=== PATIENT | male | born 1955 | race African-American/Black ===

== ENCOUNTER 2024-06-03 14:32 | Emergency (ER) | payer MEDICARE ==
[2024-06-03 15:37] LABS: BASOPHILS PERCENT AUTO 0.3 % (0.0-1.0); EOSINOPHILS ABSOLUTE AUTO 0.1 K/mm3 (0.0-0.4); EOSINOPHILS PERCENT AUTO 1.9 % (0.0-6.0); HEMATOCRIT 28.8 % (42.0-52.0); HEMOGLOBIN 9.3 gm/dl (14.0-18.0); IMMATURE GRAN ABSOLUTE AUTO 0.01 K/mm3 (0.00-0.05); IMMATURE GRAN PERCENT AUTO 0.3 % (0.0-0.4); LYMPHOCYTES ABSOLUTE AUTO 0.8 K/mm3 (1.0-4.8); LYMPHOCYTES PERCENT AUTO 25.2 % (24.0-44.0); MEAN CORPUSCULAR HGB CONC 32.3 g/dl (32.0-36.0); MEAN CORPUSCULAR VOLUME 92.9 fl (83.0-99.0); MEAN PLATELET VOLUME 11.7 fl (9.4-12.4); MONOCYTES ABSOLUTE AUTO 0.2 K/mm3 (0.0-0.8); MONOCYTES PERCENT AUTO 6.5 % (0.0-8.0); NEUTROPHILS ABSOLUTE AUTO 2.1 K/mm3 (1.8-7.7); NEUTROPHILS PERCENT AUTO 65.8 % (41.0-71.0); PLATELET COUNT,PLT 115 K/mm3 (150-400); WHITE BLOOD CELL COUNT,WBC 3.21 K/mm3 (3.9-11.3)
[2024-06-03 16:05] LABS: A/G RATIO 0.8 (1-2); ALBUMIN 3.4 g/dl (3.4-5.0); ANION GAP 12.9 (5-15); BILIRUBIN TOTAL 0.5 mg/dL (0.2-1.0); BUN/CREATININE RATIO 18.3 (14-18); CALCIUM 9.3 mg/dL (8.5-10.1); CREATININE 1.8 mg/dL (0.7-1.3); EST CRCL DRUG DOSING (CG) 34.17 mL/min; POTASSIUM,K 5.9 mEq/L (3.5-5.1); PROTEIN TOTAL,TP 7.9 g/dl (6.4-8.2)
== END 2024-06-03 16:45 | disposition home or self-care (01) ==
LOC: JD.ED 14:32
DX: E11.649 Type 2 diabetes mellitus with hypoglycemia without coma (principal); E11.22 Type 2 diabetes mellitus with diabetic chronic kidney disease; I12.9 Hypertensive chronic kidney disease with stage 1 through stage 4 chronic kidney disease, or unspecified chronic kidney disease; N18.9 Chronic kidney disease, unspecified
CPT/HCPCS: 36415; 80053; 82947; 85025; 93005; 93010; 99282; 99285

== ENCOUNTER 2024-06-30 23:10 | Emergency (ER) | payer MEDICARE ==
[2024-06-30] MEDS: diphenhydrAMINE 12.5 MG, Alum Hydrox/Mag Hydrox/Simeth 30 ML, Lidocaine 2% 15 ML PO ONE (23:42)
[2024-06-30 23:51] LABS: BASOPHILS PERCENT AUTO 0.3 % (0.0-1.0); EOSINOPHILS PERCENT AUTO 0.6 % (0.0-6.0); HEMATOCRIT 28.9 % (42.0-52.0); HEMOGLOBIN 9.5 gm/dl (14.0-18.0); IMMATURE GRAN ABSOLUTE AUTO 0.01 K/mm3 (0.00-0.05); IMMATURE GRAN PERCENT AUTO 0.3 % (0.0-0.4); LYMPHOCYTES ABSOLUTE AUTO 1.1 K/mm3 (1.0-4.8); LYMPHOCYTES PERCENT AUTO 33.1 % (24.0-44.0); MEAN CORPUSCULAR HEMOGLOBIN 30.7 pg (28.0-32.0); MEAN CORPUSCULAR HGB CONC 32.9 g/dl (32.0-36.0); MEAN CORPUSCULAR VOLUME 93.5 fl (83.0-99.0); MEAN PLATELET VOLUME 12.3 fl (9.4-12.4); MONOCYTES ABSOLUTE AUTO 0.2 K/mm3 (0.0-0.8); MONOCYTES PERCENT AUTO 4.5 % (0.0-8.0); NEUTROPHILS PERCENT AUTO 61.2 % (41.0-71.0); PLATELET COUNT,PLT 88 K/mm3 (150-400); RED BLOOD CELL COUNT 3.09 M/mm3 (4.52-5.90); WHITE BLOOD CELL COUNT,WBC 3.32 K/mm3 (3.9-11.3)
[2024-07-01 00:18] LABS: STREP A BY PCR NOT DETECTED (NOT DETECT)
[2024-07-01 00:21] LABS: A/G RATIO 0.8 (1-2); ALBUMIN 3.4 g/dl (3.4-5.0); ANION GAP 15.2 (5-15); BILIRUBIN TOTAL 0.8 mg/dL (0.2-1.0); BUN/CREATININE RATIO 15.7 (14-18); CALCIUM 8.9 mg/dL (8.5-10.1); CREATININE 1.4 mg/dL (0.7-1.3); EST CRCL DRUG DOSING (CG) 40.64 mL/min; POTASSIUM,K 5.2 mEq/L (3.5-5.1); PROTEIN TOTAL,TP 7.9 g/dl (6.4-8.2)
[2024-07-01 00:30] LABS: CORONAVIRUS COVID-19 NAA NEGATIVE (NEGATIVE); INFLUENZA A NAA NEGATIVE (NEGATIVE); RESPIRATORY SYNCYTIAL VIR NAA NEGATIVE (NEGATIVE)
[2024-07-01 00:45] LABS: SLIDE REVIEW ABNORMAL SMEAR
[2024-07-01 01:13] LABS: HEPATITIS C AB NON-REACTIVE (Non-React)
[2024-07-01 01:14] LABS: HIV RAPID SCREEN RLFX COMFIRM NON-REACTIVE (Non-React)
== END 2024-07-01 02:16 | disposition home or self-care (01) ==
LOC: JD.ED 23:10
DX: J02.9 Acute pharyngitis, unspecified (principal); D61.818 Other pancytopenia; Z88.8 Allergy status to other drugs, medicaments and biological substances; Z79.899 Other long term (current) drug therapy
CPT/HCPCS: 0241U; 36415; 80053; 85025; 86803; 87651; 99283; G0433; A9270-GY

== ENCOUNTER 2024-07-01 09:59 | Emergency (ER) | payer MEDICARE ==
[2024-07-01 11:28] LABS: BASOPHILS PERCENT AUTO 0.3 % (0.0-1.0); EOSINOPHILS PERCENT AUTO 1.2 % (0.0-6.0); HEMATOCRIT 28.8 % (42.0-52.0); HEMOGLOBIN 9.4 gm/dl (14.0-18.0); LYMPHOCYTES ABSOLUTE AUTO 0.9 K/mm3 (1.0-4.8); LYMPHOCYTES PERCENT AUTO 25.4 % (24.0-44.0); MEAN CORPUSCULAR HEMOGLOBIN 30.6 pg (28.0-32.0); MEAN CORPUSCULAR HGB CONC 32.6 g/dl (32.0-36.0); MEAN CORPUSCULAR VOLUME 93.8 fl (83.0-99.0); MEAN PLATELET VOLUME 12.2 fl (9.4-12.4); MONOCYTES ABSOLUTE AUTO 0.1 K/mm3 (0.0-0.8); MONOCYTES PERCENT AUTO 3.5 % (0.0-8.0); NEUTROPHILS ABSOLUTE AUTO 2.4 K/mm3 (1.8-7.7); NEUTROPHILS PERCENT AUTO 69.6 % (41.0-71.0); PLATELET COUNT,PLT 99 K/mm3 (150-400); RED BLOOD CELL COUNT 3.07 M/mm3 (4.52-5.90); WHITE BLOOD CELL COUNT,WBC 3.46 K/mm3 (3.9-11.3)
[2024-07-01 11:51] LABS: A/G RATIO 0.8 (1-2); ALBUMIN 3.3 g/dl (3.4-5.0); ANION GAP 12.8 (5-15); BILIRUBIN TOTAL 0.8 mg/dL (0.2-1.0); C-REACTIVE PROTEIN 0.79 mg/dL (<0.30); CREATININE 1.5 mg/dL (0.7-1.3); MAGNESIUM 1.5 mg/dL (1.8-2.4); POTASSIUM,K 5.8 mEq/L (3.5-5.1); PROTEIN TOTAL,TP 7.7 g/dl (6.4-8.2)
[2024-07-01 12:08] LABS: CORONAVIRUS COVID-19 NAA NEGATIVE (NEGATIVE); INFLUENZA A NAA NEGATIVE (NEGATIVE); RESPIRATORY SYNCYTIAL VIR NAA NEGATIVE (NEGATIVE)
[2024-07-01 12:16] LABS: SLIDE REVIEW ABNORMAL SMEAR
[2024-07-01] MEDS: Sodium Chloride 0.9% 1,000 ML IV ONE (12:50)
[2024-07-01] MEDS: Sodium Chloride 0.9% 10 ML Syringe FLUSH PRN (12:51)
[2024-07-01 14:54] LABS: BARBITURATE SCREEN,URINE NEGATIVE (CUTOFF=200); BENZODIAZEPINES SCREEN,URINE NEGATIVE (CUTOFF=150); BUPRENORPHINE SCREEN,URINE NEGATIVE (CUTOFF=10); METHADONE SCREEN, URINE NEGATIVE (CUT0FF=200); METHAMPHETAMINES SCREEN, URINE NEGATIVE (CUTOFF=500); OXYCODONE SCREEN,URINE NEGATIVE (CUT0FF=100); THC SCREEN,URINE 20 NG/ML NEGATIVE (CUTOFF=50)
[2024-07-01 15:03] LABS: AMPHETAMINES SCREEN, URINE NEGATIVE (CUTOFF=500)
== END 2024-07-01 16:30 | disposition home or self-care (01) ==
LOC: JD.ED 09:59
DX: J18.9 Pneumonia, unspecified organism (principal); I10 Essential (primary) hypertension; J45.909 Unspecified asthma, uncomplicated; E11.9 Type 2 diabetes mellitus without complications; Z88.8 Allergy status to other drugs, medicaments and biological substances; Z79.899 Other long term (current) drug therapy; Z86.16 Personal history of COVID-19
CPT/HCPCS: 0241U; 36415; 70450; 71045; 80053; 80306; 80307; 83735; 84484; 85025; 86140; 87651; 93005; 96360; 99284; J3490; J7030; 93010; 99283

== ENCOUNTER 2024-07-08 10:40 | Inpatient (IN) | payer MEDICARE ==
[2024-07-08 11:26] LABS: BASOPHILS PERCENT AUTO 0.4 % (0.0-1.0); EOSINOPHILS PERCENT AUTO 0.7 % (0.0-6.0); HEMATOCRIT 28.9 % (42.0-52.0); HEMOGLOBIN 9.7 gm/dl (14.0-18.0); IMMATURE GRAN ABSOLUTE AUTO 0.02 K/mm3 (0.00-0.05); IMMATURE GRAN PERCENT AUTO 0.7 % (0.0-0.4); LYMPHOCYTES ABSOLUTE AUTO 0.7 K/mm3 (1.0-4.8); LYMPHOCYTES PERCENT AUTO 24.3 % (24.0-44.0); MEAN CORPUSCULAR HEMOGLOBIN 30.6 pg (28.0-32.0); MEAN CORPUSCULAR HGB CONC 33.6 g/dl (32.0-36.0); MEAN CORPUSCULAR VOLUME 91.2 fl (83.0-99.0); MEAN PLATELET VOLUME 11.2 fl (9.4-12.4); MONOCYTES ABSOLUTE AUTO 0.2 K/mm3 (0.0-0.8); MONOCYTES PERCENT AUTO 6.3 % (0.0-8.0); NEUTROPHILS ABSOLUTE AUTO 1.8 K/mm3 (1.8-7.7); NEUTROPHILS PERCENT AUTO 67.6 % (41.0-71.0); NRBC ABSOLUTE 0.02 (0.00-0.02); NRBC PERCENT 0.7 % (0.0-0.2); PLATELET COUNT,PLT 76 K/mm3 (150-400); RED BLOOD CELL COUNT 3.17 M/mm3 (4.52-5.90); WHITE BLOOD CELL COUNT,WBC 2.72 K/mm3 (3.9-11.3)
[2024-07-08 11:58] LABS: A/G RATIO 0.8 (1-2); ALBUMIN 3.5 g/dl (3.4-5.0); ANION GAP 11.2 (5-15); BILIRUBIN TOTAL 0.8 mg/dL (0.2-1.0); C-REACTIVE PROTEIN 0.41 mg/dL (<0.30); CALCIUM 9.5 mg/dL (8.5-10.1); CREATININE 1.4 mg/dL (0.7-1.3); EST CRCL DRUG DOSING (CG) 43.93 mL/min
[2024-07-08 12:02] LABS: CORONAVIRUS COVID-19 NAA NEGATIVE (NEGATIVE); INFLUENZA A NAA NEGATIVE (NEGATIVE); RESPIRATORY SYNCYTIAL VIR NAA NEGATIVE (NEGATIVE)
[2024-07-08 12:10] LABS: POTASSIUM,K 6.2 mEq/L (3.5-5.1)
[2024-07-08 12:11] LABS: MAGNESIUM 1.2 mg/dL (1.8-2.4)
[2024-07-08] MEDS ORDERED: Insulin Regular, Human 100 Units/ML 3 ML Vial IVPUSH ONE (12:15)
[2024-07-08 12:17] LABS: SLIDE REVIEW ABNORMAL SMEAR
[2024-07-08] MEDS ORDERED: Magnesium Sulfate/Water Premix 2 GM/50 ML BAG IV SCH (12:30)
[2024-07-08] MEDS: 50% Dextrose in Water 50 ML Syringe IVPUSH ONE ×2 (12:39→15:53)
[2024-07-08] MEDS: Insulin Regular, Human 100 Units/ML 10 ML Vial IVPUSH ONE (12:40)
[2024-07-08] MEDS: Magnesium Sulfate/Water Premix 2 GM/50 ML BAG IV ONE (12:43)
[2024-07-08] MEDS: Sodium Chloride 0.9% 1,000 ML IV STA (12:43)
[2024-07-08] MEDS: 50% Dextrose in Water 50 ML Syringe ONE ×2 (12:53→13:59)
[2024-07-08] MEDS: 50% Dextrose in Water 50 ML Syringe IVPUSH PRN (13:56)
[2024-07-08] MEDS: cefTRIAXone 2 GM in Sodium Chloride 0.9% 100 ML IV ONE (16:04)
[2024-07-08] MEDS ORDERED: Melatonin 3 MG Tab PO PRN (16:07)
[2024-07-08] MEDS ORDERED: oxyCODONE 5 MG Tab PO PRN (16:07)
[2024-07-08] MEDS ORDERED: Ondansetron 4 MG/2 ML SDV IV PRN (16:07)
[2024-07-08] MEDS ORDERED: Morphine 2 MG/ML SYRINGE IVPUSH PRN (16:07)
[2024-07-08] MEDS ORDERED: amLODIPine 10 MG Tab PO SCH (16:15)
[2024-07-08] MEDS ORDERED: HYDRALAZINE 50 MG PO SCH (16:15)
[2024-07-08] MEDS ORDERED: Labetalol 100 MG/20 ML MDV IVPUSH PRN (16:17)
[2024-07-08 16:18] LABS: INR 1.33; PROTHROMBIN TIME 13.8 SECONDS (9.7-12.0)
[2024-07-08 16:24] LABS: LACTIC ACID 1.6 mmol/L (0.4-2.0)
[2024-07-08 17:07] LABS: HEMOGLOBIN A1C 6.3 %
[2024-07-08] MEDS: Insulin Lispro 100 Unit/ML 3 ML KwikPen SUBCUT SCH (17:37)
[2024-07-08 17:43] LABS: ANION GAP 10.5 (5-15); BUN/CREATININE RATIO 23.6 (14-18); CALCIUM 8.9 mg/dL (8.5-10.1); CREATININE 1.4 mg/dL (0.7-1.3); EST CRCL DRUG DOSING (CG) 43.93 mL/min; POTASSIUM,K 5.5 mEq/L (3.5-5.1)
[2024-07-08 17:50] LABS: TSH 12.188 uIU/mL (0.358-3.74)
[2024-07-08 17:57] LABS: T4 FREE 0.93 ng/dL (0.76-1.46)
[2024-07-08 20:50] LABS: APPEARANCE,URINE CLEAR (Clear); BILIRUBIN,URINE NEGATIVE (Negative); COLOR,URINE LIGHT YELLOW (Yellow); GLUCOSE,URINE TRACE (Negative); KETONES,URINE NEGATIVE (Negative); LEUKOCYTE ESTERASE,URINE NEGATIVE (Negative); NITRITE,URINE NEGATIVE (Negative); OCCULT BLOOD,URINE NEGATIVE (Negative); PH,URINE 5.5 (5.0-8.0); PROTEIN,URINE 2+ (Negative); UROBILINOGEN,URINE 0.2 (0.2-1.0)
[2024-07-08 20:59] LABS: BACTERIA,URINE FEW /hpf (FEW); MUCUS,URINE FEW /hpf (FEW); RBC,URINE 0-5 /hpf (0-5); SQUAMOUS EPITHELIAL CELLS,UR 0-5 /hpf (0-5); WBC,URINE 0-5 /hpf (0-5)
[2024-07-08 21:00] LABS: BARBITURATE SCREEN,URINE NEGATIVE (CUTOFF=200); BENZODIAZEPINES SCREEN,URINE NEGATIVE (CUTOFF=150); BUPRENORPHINE SCREEN,URINE NEGATIVE (CUTOFF=10); METHADONE SCREEN, URINE NEGATIVE (CUT0FF=200); METHAMPHETAMINES SCREEN, URINE NEGATIVE (CUTOFF=500); OXYCODONE SCREEN,URINE NEGATIVE (CUT0FF=100); THC SCREEN,URINE 20 NG/ML NEGATIVE (CUTOFF=50)
[2024-07-08 21:09] LABS: AMPHETAMINES SCREEN, URINE NEGATIVE (CUTOFF=500)
[2024-07-09 05:36] LABS: BASOPHILS PERCENT AUTO 0.3 % (0.0-1.0); EOSINOPHILS PERCENT AUTO 0.6 % (0.0-6.0); HEMATOCRIT 25.1 % (42.0-52.0); HEMOGLOBIN 8.5 gm/dl (14.0-18.0); IMMATURE GRAN ABSOLUTE AUTO 0.01 K/mm3 (0.00-0.05); IMMATURE GRAN PERCENT AUTO 0.3 % (0.0-0.4); LYMPHOCYTES ABSOLUTE AUTO 0.5 K/mm3 (1.0-4.8); LYMPHOCYTES PERCENT AUTO 15.8 % (24.0-44.0); MEAN CORPUSCULAR HEMOGLOBIN 30.4 pg (28.0-32.0); MEAN CORPUSCULAR HGB CONC 33.9 g/dl (32.0-36.0); MEAN CORPUSCULAR VOLUME 89.6 fl (83.0-99.0); MEAN PLATELET VOLUME 12.1 fl (9.4-12.4); MONOCYTES ABSOLUTE AUTO 0.4 K/mm3 (0.0-0.8); NEUTROPHILS ABSOLUTE AUTO 2.3 K/mm3 (1.8-7.7); NRBC ABSOLUTE 0.03 (0.00-0.02); NRBC PERCENT 0.9 % (0.0-0.2); PLATELET COUNT,PLT 82 K/mm3 (150-400); WHITE BLOOD CELL COUNT,WBC 3.17 K/mm3 (3.9-11.3)
[2024-07-09 06:00] LABS: A/G RATIO 0.7 (1-2); ALBUMIN 2.7 g/dl (3.4-5.0); ANION GAP 11.5 (5-15); BILIRUBIN TOTAL 0.4 mg/dL (0.2-1.0); BUN/CREATININE RATIO 20.6 (14-18); C-REACTIVE PROTEIN 0.34 mg/dL (<0.30); CALCIUM 8.7 mg/dL (8.5-10.1); CREATININE 1.7 mg/dL (0.7-1.3); EST CRCL DRUG DOSING (CG) 36.18 mL/min; MAGNESIUM 1.6 mg/dL (1.8-2.4); PHOSPHORUS 2.8 mg/dL (2.6-4.7); PROTEIN TOTAL,TP 6.7 g/dl (6.4-8.2)
[2024-07-09 06:11] LABS: POTASSIUM,K 7.5 mEq/L (3.5-5.1)
[2024-07-09 06:24] LABS: SLIDE REVIEW ABNORMAL SMEAR
[2024-07-09 06:48] LABS: ANION GAP 15.2 (5-15); BUN/CREATININE RATIO 21.1 (14-18); CALCIUM 9.1 mg/dL (8.5-10.1); CREATININE 1.8 mg/dL (0.7-1.3); EST CRCL DRUG DOSING (CG) 34.17 mL/min
[2024-07-09 06:51] LABS: POTASSIUM,K 7.2 mEq/L (3.5-5.1)
[2024-07-09] MEDS: Insulin Regular, Human 100 Units/ML 10 ML Vial IV ONE (07:30)
[2024-07-09 07:32] LABS: CREATININE,URINE RAND 43.7 mg/dL (30.0-125.0)
[2024-07-09] MEDS: Calcium Gluconate 10% 1 GM/10 ML SDV IVPUSH ONE (07:36)
[2024-07-09] MEDS: Albuterol 0.083% 2.5 MG/3 ML Neb Soln NEB ONE (07:39)
[2024-07-09] MEDS: Calcium Gluconate 10% 1 GM/10 ML SDV ONE (07:57)
[2024-07-09] MEDS: Insulin Regular, Human 100 Units/ML 3 ML Vial IVPUSH ONE (07:59)
[2024-07-09] MEDS: Sodium Zirconium Cyclosilicate 10 GM Packet PO SCH (08:00)
[2024-07-09] MEDS: Hydrocortisone Sodium Succinate 100 MG/2 ML SDV ONE (08:40)
[2024-07-09] MEDS: 50% Dextrose in Water 50 ML Syringe ONE (08:41)
[2024-07-09] MEDS: Sodium Chloride 0.9% 1,000 ML ONE (08:43)
[2024-07-09 09:13] LABS: EOSINOPHILS PERCENT AUTO 0.2 % (0.0-6.0); HEMATOCRIT 24.3 % (42.0-52.0); HEMOGLOBIN 7.9 gm/dl (14.0-18.0); IMMATURE GRAN ABSOLUTE AUTO 0.01 K/mm3 (0.00-0.05); IMMATURE GRAN PERCENT AUTO 0.2 % (0.0-0.4); LYMPHOCYTES ABSOLUTE AUTO 1.6 K/mm3 (1.0-4.8); LYMPHOCYTES PERCENT AUTO 35.4 % (24.0-44.0); MEAN CORPUSCULAR HEMOGLOBIN 30.9 pg (28.0-32.0); MEAN CORPUSCULAR HGB CONC 32.5 g/dl (32.0-36.0); MEAN PLATELET VOLUME 12.4 fl (9.4-12.4); MONOCYTES ABSOLUTE AUTO 0.2 K/mm3 (0.0-0.8); MONOCYTES PERCENT AUTO 4.1 % (0.0-8.0); NEUTROPHILS ABSOLUTE AUTO 2.7 K/mm3 (1.8-7.7); NEUTROPHILS PERCENT AUTO 60.1 % (41.0-71.0); NRBC ABSOLUTE 0.06 (0.00-0.02); NRBC PERCENT 1.4 % (0.0-0.2); PLATELET COUNT,PLT 69 K/mm3 (150-400); RED BLOOD CELL COUNT 2.56 M/mm3 (4.52-5.90); WHITE BLOOD CELL COUNT,WBC 4.41 K/mm3 (3.9-11.3)
[2024-07-09 09:30] LABS: MEAN CORPUSCULAR VOLUME 94.9 fl (83.0-99.0)
[2024-07-09] MEDS: Enoxaparin 40 MG/0.4 ML Syringe SUBCUT SCH (09:32)
[2024-07-09] MEDS: Dextrose 10% in Water 1,000 ML IV SCH (09:35)
[2024-07-09] MEDS: cefTRIAXone 1 GM in Sodium Chloride 0.9% 100 ML IV SCH (09:40)
[2024-07-09] MEDS: Sodium Chloride 0.9% 1,000 ML IV SCH (09:44)
[2024-07-09 09:57] LABS: SLIDE REVIEW ABNORMAL SMEAR
[2024-07-09 10:13] LABS: A/G RATIO 0.7 (1-2); ALBUMIN 2.5 g/dl (3.4-5.0); BILIRUBIN TOTAL 0.4 mg/dL (0.2-1.0); CALCIUM 9.4 mg/dL (8.5-10.1); EST CRCL DRUG DOSING (CG) 30.75 mL/min; MAGNESIUM 1.6 mg/dL (1.8-2.4); PHOSPHORUS 1.5 mg/dL (2.6-4.7)
[2024-07-09 10:15] LABS: FOLIC ACID 3.6 ng/mL (8.6-58.9)
[2024-07-09 10:18] LABS: ANION GAP 17.3 (5-15)
[2024-07-09] MEDS: Sodium Chloride 0.9% 100 ML IV SCH (10:24)
[2024-07-09] MEDS: Iopamidol 755 Mg/ML 100 ML Bottle IVPUSH ONE (10:24)
[2024-07-09 10:27] LABS: POTASSIUM,K 4.3 mEq/L (3.5-5.1)
[2024-07-09] MEDS ORDERED: Thiamine 500 MG in Sodium Chloride 0.9% 250 ML IV SCH (11:45)
[2024-07-09] MEDS: Sodium Phosphate 30 MMOLE in Sodium Chloride 0.9% 250 ML IV ONE (12:14)
[2024-07-09] MEDS: Folic Acid 50 MG/10 ML MDV IV SCH (12:14)
[2024-07-09] MEDS: Thiamine 200 MG/2 ML MDV IVPUSH SCH (12:16)
[2024-07-09 12:50] LABS: ANION GAP 16.5 (5-15); BUN/CREATININE RATIO 19.5 (14-18); CALCIUM 8.8 mg/dL (8.5-10.1); CREATININE 1.9 mg/dL (0.7-1.3); EST CRCL DRUG DOSING (CG) 32.37 mL/min; POTASSIUM,K 4.5 mEq/L (3.5-5.1)
[2024-07-09] MEDS: Hydrocortisone Sodium Succinate 100 MG/2 ML SDV IVPUSH ONE (13:22)
[2024-07-09 15:01] LABS: O2 SATURATION ARTERIAL 98.6 % (96.0-97.0); PCO2 ARTERIAL 43.7 mmHg (35.0-45.0)
[2024-07-09 15:02] LABS: BASE EXCESS ARTERIAL -8.4 (-2-2.0); BICARBONATE,ARTERIAL 18.3 meq/L (22.0-26.0)
[2024-07-09] MEDS: Hydrocortisone Sodium Succinate 100 MG/2 ML SDV IVPUSH SCH (17:00)
[2024-07-09 18:30] LABS: ANION GAP 15.3 (5-15); BUN/CREATININE RATIO 19.4 (14-18); CALCIUM 9.2 mg/dL (8.5-10.1); CREATININE 1.8 mg/dL (0.7-1.3); EST CRCL DRUG DOSING (CG) 34.17 mL/min; POTASSIUM,K 5.3 mEq/L (3.5-5.1)
[2024-07-09] MEDS: Famotidine 20 MG/2 ML SDV IVPUSH SCH (21:21)
[2024-07-10] MEDS: hydrALAZINE 20 MG/ML SDV IVPUSH PRN (05:26)
[2024-07-10 05:28] LABS: BASOPHILS PERCENT AUTO 0.1 % (0.0-1.0); HEMATOCRIT 26.9 % (42.0-52.0); HEMOGLOBIN 8.9 gm/dl (14.0-18.0); IMMATURE GRAN ABSOLUTE AUTO 0.06 K/mm3 (0.00-0.05); IMMATURE GRAN PERCENT AUTO 0.5 % (0.0-0.4); LYMPHOCYTES ABSOLUTE AUTO 0.7 K/mm3 (1.0-4.8); MEAN CORPUSCULAR HEMOGLOBIN 30.8 pg (28.0-32.0); MEAN CORPUSCULAR HGB CONC 33.1 g/dl (32.0-36.0); MEAN CORPUSCULAR VOLUME 93.1 fl (83.0-99.0); MONOCYTES ABSOLUTE AUTO 0.1 K/mm3 (0.0-0.8); MONOCYTES PERCENT AUTO 0.9 % (0.0-8.0); NEUTROPHILS ABSOLUTE AUTO 11.5 K/mm3 (1.8-7.7); NEUTROPHILS PERCENT AUTO 92.5 % (41.0-71.0); NRBC ABSOLUTE 0.03 (0.00-0.02); NRBC PERCENT 0.2 % (0.0-0.2); PLATELET COUNT,PLT 67 K/mm3 (150-400); RED BLOOD CELL COUNT 2.89 M/mm3 (4.52-5.90); WHITE BLOOD CELL COUNT,WBC 12.41 K/mm3 (3.9-11.3)
[2024-07-10 05:44] LABS: A/G RATIO 0.6 (1-2); ALBUMIN 2.6 g/dl (3.4-5.0); ANION GAP 15.1 (5-15); BILIRUBIN TOTAL 0.4 mg/dL (0.2-1.0); BUN/CREATININE RATIO 18.9 (14-18); CALCIUM 8.7 mg/dL (8.5-10.1); CREATININE 1.8 mg/dL (0.7-1.3); EST CRCL DRUG DOSING (CG) 34.17 mL/min; MAGNESIUM 1.6 mg/dL (1.8-2.4); PHOSPHORUS 4.1 mg/dL (2.6-4.7); PROTEIN TOTAL,TP 6.8 g/dl (6.4-8.2)
[2024-07-10 05:59] LABS: POTASSIUM,K 6.1 mEq/L (3.5-5.1); SLIDE REVIEW ABNORMAL SMEAR
[2024-07-10] MEDS: Tamsulosin 0.4 MG Cap.ER PO SCH ×2 (11:30→21:07)
[2024-07-10] MEDS: Magnesium Oxide 400 MG Tab PO ONE (11:30)
[2024-07-10] MEDS ORDERED: Insulin Regular, Human 100 Units/ML 3 ML Vial IV ONE (11:33)
[2024-07-10] MEDS ORDERED: 50% Dextrose in Water 50 ML SDV IV ONE (11:45)
[2024-07-10] MEDS: Calcium Gluconate 10% 1 GM/10 ML SDV IVPUSH ONE (11:45)
[2024-07-10] MEDS: 50% Dextrose in Water 50 ML Syringe IV ONE (11:50)
[2024-07-10] MEDS: Albuterol 0.083% 2.5 MG/3 ML Neb Soln NEB ONE (12:32)
[2024-07-10] MEDS: Sodium Chloride 0.9% 1,000 ML IV SCH (15:30)
[2024-07-10] MEDS: Hydrocortisone Sodium Succinate 100 MG/2 ML SDV IVPUSH SCH (16:00)
[2024-07-10 18:46] LABS: ANION GAP 19.5 (5-15); BUN/CREATININE RATIO 15.8 (14-18); CALCIUM 8.7 mg/dL (8.5-10.1); CREATININE 2.6 mg/dL (0.7-1.3); EST CRCL DRUG DOSING (CG) 23.65 mL/min; POTASSIUM,K 4.5 mEq/L (3.5-5.1)
[2024-07-10] MEDS ORDERED: Hydrocortisone Sodium Succinate 100 MG/2 ML SDV IVPUSH SCH (20:00)
[2024-07-10] MEDS: Acetaminophen 325 MG Tab PO PRN (21:07)
[2024-07-10] MEDS: Folic Acid 1 MG Tab PO SCH (21:07)
[2024-07-11 05:41] LABS: BASOPHILS PERCENT AUTO 0.1 % (0.0-1.0); EOSINOPHILS PERCENT AUTO 0.1 % (0.0-6.0); HEMOGLOBIN 7.6 gm/dl (14.0-18.0); IMMATURE GRAN ABSOLUTE AUTO 0.03 K/mm3 (0.00-0.05); IMMATURE GRAN PERCENT AUTO 0.4 % (0.0-0.4); LYMPHOCYTES ABSOLUTE AUTO 0.9 K/mm3 (1.0-4.8); LYMPHOCYTES PERCENT AUTO 11.5 % (24.0-44.0); MEAN CORPUSCULAR HEMOGLOBIN 30.9 pg (28.0-32.0); MEAN CORPUSCULAR VOLUME 93.5 fl (83.0-99.0); MEAN PLATELET VOLUME 13.5 fl (9.4-12.4); MONOCYTES ABSOLUTE AUTO 0.4 K/mm3 (0.0-0.8); MONOCYTES PERCENT AUTO 5.2 % (0.0-8.0); NEUTROPHILS ABSOLUTE AUTO 6.7 K/mm3 (1.8-7.7); NEUTROPHILS PERCENT AUTO 82.7 % (41.0-71.0); NRBC ABSOLUTE 0.04 (0.00-0.02); NRBC PERCENT 0.5 % (0.0-0.2); PLATELET COUNT,PLT 69 K/mm3 (150-400); RED BLOOD CELL COUNT 2.46 M/mm3 (4.52-5.90); WHITE BLOOD CELL COUNT,WBC 8.15 K/mm3 (3.9-11.3)
[2024-07-11 05:57] LABS: A/G RATIO 0.6 (1-2); ALBUMIN 2.6 g/dl (3.4-5.0); ANION GAP 18.3 (5-15); BILIRUBIN TOTAL 0.3 mg/dL (0.2-1.0); BUN/CREATININE RATIO 16.5 (14-18); CALCIUM 8.6 mg/dL (8.5-10.1); CREATININE 2.6 mg/dL (0.7-1.3); EST CRCL DRUG DOSING (CG) 23.65 mL/min; MAGNESIUM 1.6 mg/dL (1.8-2.4); POTASSIUM,K 4.3 mEq/L (3.5-5.1); PROTEIN TOTAL,TP 6.7 g/dl (6.4-8.2)
[2024-07-11 06:05] LABS: SLIDE REVIEW ABNORMAL SMEAR
[2024-07-11] MEDS: Enoxaparin 30 MG/0.3 ML Syringe SUBCUT SCH (09:30)
[2024-07-11] MEDS: Magnesium Sulfate/Water Premix 2 GM in Premix Bag 1 BAG IV ONE (12:40)
[2024-07-11 12:42] LABS: PHOSPHORUS 4.9 mg/dL (2.6-4.7)
[2024-07-11] MEDS: Hydrocortisone Sodium Succinate 100 MG/2 ML SDV IVPUSH SCH (21:39)
[2024-07-11] MEDS: Famotidine 20 MG Tab PO SCH (21:39)
[2024-07-12 04:38] LABS: BASOPHILS PERCENT AUTO 0.1 % (0.0-1.0); EOSINOPHILS PERCENT AUTO 0.1 % (0.0-6.0); HEMATOCRIT 22.6 % (42.0-52.0); HEMOGLOBIN 7.5 gm/dl (14.0-18.0); IMMATURE GRAN ABSOLUTE AUTO 0.04 K/mm3 (0.00-0.05); IMMATURE GRAN PERCENT AUTO 0.5 % (0.0-0.4); LYMPHOCYTES ABSOLUTE AUTO 0.4 K/mm3 (1.0-4.8); LYMPHOCYTES PERCENT AUTO 4.3 % (24.0-44.0); MEAN CORPUSCULAR HEMOGLOBIN 30.6 pg (28.0-32.0); MEAN CORPUSCULAR HGB CONC 33.2 g/dl (32.0-36.0); MEAN CORPUSCULAR VOLUME 92.2 fl (83.0-99.0); MONOCYTES ABSOLUTE AUTO 0.1 K/mm3 (0.0-0.8); MONOCYTES PERCENT AUTO 1.7 % (0.0-8.0); NEUTROPHILS ABSOLUTE AUTO 7.8 K/mm3 (1.8-7.7); NEUTROPHILS PERCENT AUTO 93.3 % (41.0-71.0); NRBC ABSOLUTE 0.06 (0.00-0.02); NRBC PERCENT 0.7 % (0.0-0.2); PLATELET COUNT,PLT 55 K/mm3 (150-400); RED BLOOD CELL COUNT 2.45 M/mm3 (4.52-5.90); WHITE BLOOD CELL COUNT,WBC 8.39 K/mm3 (3.9-11.3)
[2024-07-12 05:12] LABS: A/G RATIO 0.7 (1-2); ALBUMIN 2.6 g/dl (3.4-5.0); ANION GAP 11.9 (5-15); BILIRUBIN TOTAL 0.3 mg/dL (0.2-1.0); BUN/CREATININE RATIO 21.7 (14-18); CALCIUM 8.2 mg/dL (8.5-10.1); CREATININE 2.4 mg/dL (0.7-1.3); EST CRCL DRUG DOSING (CG) 25.63 mL/min; PHOSPHORUS 4.4 mg/dL (2.6-4.7); POTASSIUM,K 4.9 mEq/L (3.5-5.1); PROTEIN TOTAL,TP 6.4 g/dl (6.4-8.2)
[2024-07-12 06:05] LABS: SLIDE REVIEW ABNORMAL SMEAR
[2024-07-12] MEDS: Thiamine 100 MG Tab PO SCH (08:22)
[2024-07-12 13:47] LABS: ACTH 53.5 pg/mL (7.2-63.3)
[2024-07-12 19:43] LABS: DHEA SULFATE 14 ug/dL (34-249)
[2024-07-12 21:43] LABS: ALDOSTERONE 9.6 ng/dL
[2024-07-13 04:43] LABS: EOSINOPHILS ABSOLUTE AUTO 0.1 K/mm3 (0.0-0.4); EOSINOPHILS PERCENT AUTO 1.3 % (0.0-6.0); HEMATOCRIT 21.9 % (42.0-52.0); IMMATURE GRAN ABSOLUTE AUTO 0.03 K/mm3 (0.00-0.05); IMMATURE GRAN PERCENT AUTO 0.6 % (0.0-0.4); LYMPHOCYTES ABSOLUTE AUTO 0.5 K/mm3 (1.0-4.8); LYMPHOCYTES PERCENT AUTO 10.6 % (24.0-44.0); MEAN CORPUSCULAR HEMOGLOBIN 30.7 pg (28.0-32.0); MEAN CORPUSCULAR HGB CONC 33.3 g/dl (32.0-36.0); MEAN PLATELET VOLUME 12.1 fl (9.4-12.4); MONOCYTES ABSOLUTE AUTO 0.3 K/mm3 (0.0-0.8); NEUTROPHILS ABSOLUTE AUTO 3.8 K/mm3 (1.8-7.7); NEUTROPHILS PERCENT AUTO 81.5 % (41.0-71.0); NRBC ABSOLUTE 0.05 (0.00-0.02); NRBC PERCENT 1.1 % (0.0-0.2); PLATELET COUNT,PLT 57 K/mm3 (150-400); RED BLOOD CELL COUNT 2.38 M/mm3 (4.52-5.90)
[2024-07-13 05:11] LABS: A/G RATIO 0.7 (1-2); ALBUMIN 2.4 g/dl (3.4-5.0); ANION GAP 12.8 (5-15); BILIRUBIN TOTAL 0.3 mg/dL (0.2-1.0); BUN/CREATININE RATIO 27.4 (14-18); CREATININE 2.3 mg/dL (0.7-1.3); EST CRCL DRUG DOSING (CG) 26.74 mL/min; MAGNESIUM 1.9 mg/dL (1.8-2.4); PHOSPHORUS 4.9 mg/dL (2.6-4.7); POTASSIUM,K 3.8 mEq/L (3.5-5.1)
[2024-07-13 05:38] LABS: HEMOGLOBIN 7.3 gm/dl (14.0-18.0)
[2024-07-13 06:19] LABS: SLIDE REVIEW ABNORMAL SMEAR
[2024-07-13 07:46] LABS: RENIN 0.3 ng/mL/hr
[2024-07-13 08:13] LABS: IRON,FE 86 ug/dL (65-175); PERCENT FE SATURATION 43 % (20-55); TRANSFERRIN 160 mg/dL (202-364)
[2024-07-13 09:00] LABS: TOTAL IRON BINDING CAPACITY 200 ug/dL (100-400)
[2024-07-13 10:26] LABS: RETICULOCYTE COUNT PERCENT 2.19 % (0.50-2.00)
[2024-07-13 10:36] LABS: URIC ACID 6.7 mg/dL (3.5-7.2)
[2024-07-13] MEDS ORDERED: guaiFENesin 600 MG Tab.ER PO PRN (12:09)
[2024-07-13 12:32] LABS: HEMATOCRIT 23.3 % (42.0-52.0); HEMOGLOBIN 7.8 gm/dl (14.0-18.0)
[2024-07-13] MEDS ORDERED: Acetaminophen 325 MG Tab PO PRN (13:09)
[2024-07-13] MEDS: Doxycycline Monohydrate 100 MG Cap PO SCH ×2 (15:48→20:02)
[2024-07-13] MEDS: guaiFENesin 600 MG Tab.ER PO SCH (20:02)
[2024-07-13 20:43] LABS: VITAMIN B1, WHOLE BLOOD 58 nmol/L (70-180)
[2024-07-14 04:37] LABS: BASOPHILS PERCENT AUTO 0.3 % (0.0-1.0); EOSINOPHILS ABSOLUTE AUTO 0.1 K/mm3 (0.0-0.4); EOSINOPHILS PERCENT AUTO 1.9 % (0.0-6.0); HEMATOCRIT 21.3 % (42.0-52.0); IMMATURE GRAN ABSOLUTE AUTO 0.03 K/mm3 (0.00-0.05); IMMATURE GRAN PERCENT AUTO 0.8 % (0.0-0.4); LYMPHOCYTES ABSOLUTE AUTO 0.5 K/mm3 (1.0-4.8); LYMPHOCYTES PERCENT AUTO 14.6 % (24.0-44.0); MEAN CORPUSCULAR HEMOGLOBIN 30.3 pg (28.0-32.0); MEAN CORPUSCULAR HGB CONC 33.3 g/dl (32.0-36.0); MEAN PLATELET VOLUME 13.1 fl (9.4-12.4); MONOCYTES ABSOLUTE AUTO 0.3 K/mm3 (0.0-0.8); MONOCYTES PERCENT AUTO 9.2 % (0.0-8.0); NEUTROPHILS ABSOLUTE AUTO 2.7 K/mm3 (1.8-7.7); NEUTROPHILS PERCENT AUTO 73.2 % (41.0-71.0); NRBC ABSOLUTE 0.04 (0.00-0.02); NRBC PERCENT 1.1 % (0.0-0.2); PLATELET COUNT,PLT 60 K/mm3 (150-400); RED BLOOD CELL COUNT 2.34 M/mm3 (4.52-5.90)
[2024-07-14] MEDS: Levothyroxine 25 MCG Tab PO SCH (04:59)
[2024-07-14 05:06] LABS: HEMOGLOBIN 7.1 gm/dl (14.0-18.0)
[2024-07-14 05:10] LABS: A/G RATIO 0.6 (1-2); ALBUMIN 2.2 g/dl (3.4-5.0); ANION GAP 13.2 (5-15); BILIRUBIN TOTAL 0.3 mg/dL (0.2-1.0); BUN/CREATININE RATIO 29.5 (14-18); C-REACTIVE PROTEIN 3.23 mg/dL (<0.30); CALCIUM 8.4 mg/dL (8.5-10.1); CREATININE 1.9 mg/dL (0.7-1.3); EST CRCL DRUG DOSING (CG) 32.37 mL/min; POTASSIUM,K 4.2 mEq/L (3.5-5.1); PROTEIN TOTAL,TP 6.1 g/dl (6.4-8.2)
[2024-07-14 05:30] LABS: SLIDE REVIEW ABNORMAL SMEAR
[2024-07-14] MEDS: Carboxymethylcellulose Sodium 1% Ophth Gel 15 ML Bottle EYEBOTH PRN (09:23)
[2024-07-14] MEDS: Sennosides/Docusate Sodium 50-8.6 MG Tab PO PRN (09:23)
[2024-07-14 13:47] LABS: BORDETELLA PARAPERT IS1001 Not Detected (Not Detected)
[2024-07-14 17:06] LABS: PHOSPHORUS 4.4 mg/dL (2.6-4.7)
[2024-07-14 18:13] LABS: BASOPHILS PERCENT AUTO 0.3 % (0.0-1.0); EOSINOPHILS ABSOLUTE AUTO 0.1 K/mm3 (0.0-0.4); EOSINOPHILS PERCENT AUTO 1.6 % (0.0-6.0); HEMATOCRIT 23.2 % (42.0-52.0); HEMOGLOBIN 7.7 gm/dl (14.0-18.0); IMMATURE GRAN ABSOLUTE AUTO 0.02 K/mm3 (0.00-0.05); IMMATURE GRAN PERCENT AUTO 0.5 % (0.0-0.4); LYMPHOCYTES ABSOLUTE AUTO 0.6 K/mm3 (1.0-4.8); LYMPHOCYTES PERCENT AUTO 16.8 % (24.0-44.0); MEAN CORPUSCULAR HEMOGLOBIN 30.8 pg (28.0-32.0); MEAN CORPUSCULAR HGB CONC 33.2 g/dl (32.0-36.0); MEAN CORPUSCULAR VOLUME 92.8 fl (83.0-99.0); MEAN PLATELET VOLUME 13.2 fl (9.4-12.4); MONOCYTES ABSOLUTE AUTO 0.3 K/mm3 (0.0-0.8); MONOCYTES PERCENT AUTO 7.2 % (0.0-8.0); NEUTROPHILS ABSOLUTE AUTO 2.8 K/mm3 (1.8-7.7); NEUTROPHILS PERCENT AUTO 73.6 % (41.0-71.0); NRBC ABSOLUTE 0.03 (0.00-0.02); NRBC PERCENT 0.8 % (0.0-0.2); PLATELET COUNT,PLT 62 K/mm3 (150-400); WHITE BLOOD CELL COUNT,WBC 3.75 K/mm3 (3.9-11.3)
[2024-07-14 18:52] LABS: INR 1.1; PROTHROMBIN TIME 11.6 SECONDS (9.7-12.0)
[2024-07-14 18:59] LABS: A/G RATIO 0.7 (1-2); ALBUMIN 2.6 g/dl (3.4-5.0); ANION GAP 13.7 (5-15); BILIRUBIN TOTAL 0.3 mg/dL (0.2-1.0); BUN/CREATININE RATIO 30.5 (14-18); CALCIUM 8.5 mg/dL (8.5-10.1); EST CRCL DRUG DOSING (CG) 30.75 mL/min; POTASSIUM,K 4.7 mEq/L (3.5-5.1); PROTEIN TOTAL,TP 6.6 g/dl (6.4-8.2)
[2024-07-14] MEDS: REMDESIVIR 200 MG in Sodium Chloride 0.9% 250 ML IV ONE ×2 (21:09→22:22)
[2024-07-15] MEDS: Enoxaparin 40 MG/0.4 ML Syringe SUBCUT SCH (08:03)
[2024-07-15 11:47] LABS: HIV 1,2 COMBO AG/AB CIA W/RFLX Negative (Negative)
[2024-07-15] MEDS: Benzocaine/Cetylpyridinium/Menthol Lozenge MUCMEM PRN (12:14)
[2024-07-15] MEDS: REMDESIVIR 100 MG in Sodium Chloride 0.9% 250 ML IV SCH (21:05)
[2024-07-15] MEDS: Ondansetron 4 MG Tab.DIS PO PRN (21:17)
[2024-07-16 05:44] LABS: BASOPHILS PERCENT AUTO 0.2 % (0.0-1.0); EOSINOPHILS ABSOLUTE AUTO 0.1 K/mm3 (0.0-0.4); EOSINOPHILS PERCENT AUTO 1.5 % (0.0-6.0); HEMATOCRIT 21.9 % (42.0-52.0); IMMATURE GRAN ABSOLUTE AUTO 0.02 K/mm3 (0.00-0.05); IMMATURE GRAN PERCENT AUTO 0.5 % (0.0-0.4); LYMPHOCYTES ABSOLUTE AUTO 0.9 K/mm3 (1.0-4.8); LYMPHOCYTES PERCENT AUTO 21.5 % (24.0-44.0); MEAN CORPUSCULAR HEMOGLOBIN 30.5 pg (28.0-32.0); MEAN CORPUSCULAR HGB CONC 32.9 g/dl (32.0-36.0); MEAN CORPUSCULAR VOLUME 92.8 fl (83.0-99.0); MEAN PLATELET VOLUME 13.2 fl (9.4-12.4); MONOCYTES ABSOLUTE AUTO 0.4 K/mm3 (0.0-0.8); MONOCYTES PERCENT AUTO 10.8 % (0.0-8.0); NEUTROPHILS ABSOLUTE AUTO 2.7 K/mm3 (1.8-7.7); NEUTROPHILS PERCENT AUTO 65.5 % (41.0-71.0); NRBC ABSOLUTE 0.05 (0.00-0.02); NRBC PERCENT 1.2 % (0.0-0.2); PLATELET COUNT,PLT 62 K/mm3 (150-400); RED BLOOD CELL COUNT 2.36 M/mm3 (4.52-5.90); WHITE BLOOD CELL COUNT,WBC 4.09 K/mm3 (3.9-11.3)
[2024-07-16 05:52] LABS: HEMOGLOBIN 7.2 gm/dl (14.0-18.0)
[2024-07-16 06:06] LABS: A/G RATIO 0.6 (1-2); ALBUMIN 2.4 g/dl (3.4-5.0); ANION GAP 10.4 (5-15); BILIRUBIN TOTAL 0.3 mg/dL (0.2-1.0); BUN/CREATININE RATIO 31.3 (14-18); CALCIUM 8.6 mg/dL (8.5-10.1); CREATININE 1.5 mg/dL (0.7-1.3); POTASSIUM,K 5.4 mEq/L (3.5-5.1); PROTEIN TOTAL,TP 6.2 g/dl (6.4-8.2)
[2024-07-16 06:24] LABS: SLIDE REVIEW ABNORMAL SMEAR
[2024-07-16] MEDS: 50% Dextrose in Water 50 ML Syringe IVPUSH ONE (09:20)
[2024-07-16] MEDS: Insulin Regular, Human 100 Units/ML 10 ML Vial IV ONE (09:20)
[2024-07-16 15:16] LABS: ANION GAP 12.1 (5-15); BUN/CREATININE RATIO 31.9 (14-18); CALCIUM 8.5 mg/dL (8.5-10.1); CREATININE 1.6 mg/dL (0.7-1.3); EST CRCL DRUG DOSING (CG) 38.44 mL/min; POTASSIUM,K 5.1 mEq/L (3.5-5.1)
[2024-07-16] MEDS: Polyethylene Glycol 3350 Powder 17 GM Packet PO PRN (17:27)
[2024-07-17 04:42] LABS: ANA BY ELISA, IGG W/RFX TO IFA None Detected (None Detected)
[2024-07-17 05:31] LABS: BASOPHILS PERCENT AUTO 0.2 % (0.0-1.0); EOSINOPHILS ABSOLUTE AUTO 0.1 K/mm3 (0.0-0.4); EOSINOPHILS PERCENT AUTO 1.2 % (0.0-6.0); HEMATOCRIT 22.3 % (42.0-52.0); IMMATURE GRAN ABSOLUTE AUTO 0.05 K/mm3 (0.00-0.05); LYMPHOCYTES ABSOLUTE AUTO 1.3 K/mm3 (1.0-4.8); LYMPHOCYTES PERCENT AUTO 25.1 % (24.0-44.0); MEAN CORPUSCULAR HEMOGLOBIN 30.6 pg (28.0-32.0); MEAN CORPUSCULAR HGB CONC 33.2 g/dl (32.0-36.0); MEAN CORPUSCULAR VOLUME 92.1 fl (83.0-99.0); MEAN PLATELET VOLUME 12.6 fl (9.4-12.4); MONOCYTES ABSOLUTE AUTO 0.5 K/mm3 (0.0-0.8); MONOCYTES PERCENT AUTO 9.9 % (0.0-8.0); NEUTROPHILS ABSOLUTE AUTO 3.2 K/mm3 (1.8-7.7); NEUTROPHILS PERCENT AUTO 62.6 % (41.0-71.0); NRBC ABSOLUTE 0.05 (0.00-0.02); PLATELET COUNT,PLT 71 K/mm3 (150-400); RED BLOOD CELL COUNT 2.42 M/mm3 (4.52-5.90); WHITE BLOOD CELL COUNT,WBC 5.17 K/mm3 (3.9-11.3)
[2024-07-17 05:37] LABS: HEMOGLOBIN 7.4 gm/dl (14.0-18.0)
[2024-07-17 05:56] LABS: A/G RATIO 0.6 (1-2); ALBUMIN 2.4 g/dl (3.4-5.0); ANION GAP 12.9 (5-15); BILIRUBIN TOTAL 0.4 mg/dL (0.2-1.0); BUN/CREATININE RATIO 31.3 (14-18); CALCIUM 8.8 mg/dL (8.5-10.1); CREATININE 1.6 mg/dL (0.7-1.3); EST CRCL DRUG DOSING (CG) 38.44 mL/min; POTASSIUM,K 5.9 mEq/L (3.5-5.1); PROTEIN TOTAL,TP 6.3 g/dl (6.4-8.2)
[2024-07-17 06:00] LABS: SLIDE REVIEW ABNORMAL SMEAR
[2024-07-17] MEDS: 50% Dextrose in Water 50 ML Syringe IVPUSH ONE ×2 (10:06→21:50)
[2024-07-17] MEDS: Insulin Regular, Human 100 Units/ML 10 ML Vial IV ONE ×2 (10:06→21:50)
[2024-07-17] MEDS ORDERED: Hydrochlorothiazide 12.5 MG Cap PO SCH (15:00)
[2024-07-17 15:23] LABS: ANION GAP 12.6 (5-15); BUN/CREATININE RATIO 28.8 (14-18); CALCIUM 8.9 mg/dL (8.5-10.1); CREATININE 1.7 mg/dL (0.7-1.3); EST CRCL DRUG DOSING (CG) 36.18 mL/min; POTASSIUM,K 5.6 mEq/L (3.5-5.1)
[2024-07-18] MEDS: Levothyroxine 25 MCG Tab PO ONE (10:43)
[2024-07-19] MEDS: Levothyroxine 25 MCG Tab PO SCH (06:31)
[2024-07-19 15:46] LABS: QNTIFERON MITOGEN MIN NIL 0.64 IU/mL; QNTIFERON PLUS TB1 MINUS NIL 0.13 IU/mL (<=0.34); QNTIFERON PLUS TB2 MINUS NIL 0.19 IU/mL (<=0.34); QNTIFERON TB GOLD PLUS Negative (Negative)
[2024-07-21] MEDS ORDERED: Levothyroxine 50 MCG Tab PO SCH (06:00)
== END 2024-07-20 15:13 | disposition home or self-care (01) | DRG 871 ==
LOC: JD.ED 10:40 → JD.MS 16:07 → JD.ICU 07-09 08:55 → JD.MS 07-14 16:24 → JD.ICU 07-14 17:28
PROVIDERS: ADMIT Student in an Organized Health Care Education/Training Program; ATTEND Internal Medicine
PROC: 3E03329 Introduction of Other Anti-infective into Peripheral Vein, Percutaneous Approach (ICD-10-PCS; 2024-07-08)
PROC: 4A033R1 Measurement of Arterial Saturation, Peripheral, Percutaneous Approach (ICD-10-PCS; principal; 2024-07-09)
PROC: 3E033XZ Introduction of Vasopressor into Peripheral Vein, Percutaneous Approach (ICD-10-PCS; 2024-07-10)
PROC: XW033E5 Introduction of Remdesivir Anti-infective into Peripheral Vein, Percutaneous Approach, New Technology Group 5 (ICD-10-PCS; 2024-07-14)
DX: A41.9 Sepsis, unspecified organism (principal); E43 Unspecified severe protein-calorie malnutrition; J18.9 Pneumonia, unspecified organism; U07.1 COVID-19; N18.9 Chronic kidney disease, unspecified; Z59.00 Homelessness unspecified; D61.818 Other pancytopenia; E87.1 Hypo-osmolality and hyponatremia; N17.9 Acute kidney failure, unspecified; G93.40 Encephalopathy, unspecified; E27.2 Addisonian crisis; E51.9 Thiamine deficiency, unspecified; R65.20 Severe sepsis without septic shock; R29.6 Repeated falls; H91.90 Unspecified hearing loss, unspecified ear; J45.909 Unspecified asthma, uncomplicated; R00.1 Bradycardia, unspecified; E87.5 Hyperkalemia; E83.42 Hypomagnesemia; T68.XXXA Hypothermia, initial encounter; I12.9 Hypertensive chronic kidney disease with stage 1 through stage 4 chronic kidney disease, or unspecified chronic kidney disease; E11.22 Type 2 diabetes mellitus with diabetic chronic kidney disease; I44.7 Left bundle-branch block, unspecified; R74.01 Elevation of levels of liver transaminase levels; E86.0 Dehydration; I44.0 Atrioventricular block, first degree; E11.649 Type 2 diabetes mellitus with hypoglycemia without coma; E83.39 Other disorders of phosphorus metabolism; D63.1 Anemia in chronic kidney disease; E03.8 Other specified hypothyroidism; E53.8 Deficiency of other specified B group vitamins; R33.9 Retention of urine, unspecified; E87.8 Other disorders of electrolyte and fluid balance, not elsewhere classified; N18.32 Chronic kidney disease, stage 3b; Z68.26 Body mass index [BMI] 26.0-26.9, adult; Z88.8 Allergy status to other drugs, medicaments and biological substances; Z79.84 Long term (current) use of oral hypoglycemic drugs; Z79.899 Other long term (current) drug therapy; Z86.16 Personal history of COVID-19
CPT/HCPCS: 0241U; 36415; 36600; 51702; 70450; 70496; 70498; 71045; 71046; 72125; 80048; 80053; 80306; 80307; 80400; 81001; 82010; 82024; 82088; 82140; 82533; 82550; 82570; 82607; 82627; 82728; 82746; 82803; 82947; 83036; 83540; 83605; 83615; 83735; 83880; 84100; 84244; 84300; 84425; 84439; 84443; 84466; 84484; 84550; 85014; 85018; 85025; 85045; 85610; 85652; 86038; 86140; 86480; 87040; 87070; 87086; 87205; 87389; 87486; 87581; 87633; 87899; 93005; 93306; 94640; 94760; 94761; 96361; 96365; 96366; 96367; 96375; 96376; 97110; 97112; 97116; 97161; 97530; 99285; 93010; 99223; 99232; 99233; 99239; A9270-GY; J0248; J0360; J0612; J0696; J1650; J1720; J1815; J1815-GY; J3411; J3475; J3490; J7030; J7042; J7050; J7620-GY; Q9967